=== PATIENT | male | born 1995 | race Caucasian/White ===

== ENCOUNTER → 2017-08-14 06:02 | Emergency (ER) | payer BC, MEDICAID ==
[~2017-08-14 06:02] MED LIST: Clindamycin 600 MG IVPREMIX(* 600 MG/50 ML SDV IV ONE; Dexamethasone IV* 4 MG/ML 1 ML (4 MG) IV SLOW PU ONE; Iohexol 300* (CONTRAST) 10 ML SDV IV ONE
[2017-08-14] MEDS: NS 0.9% 1000 ML* 2,000 ML IV ONE (07:59)
[2017-08-14 08:23] LABS: Hematocrit 46 % (42-52); Hemoglobin 16.2 g/dl (14.0-18.0); Mean Corpuscular HGB Conc 35 g/dl (31-36); Mean Corpuscular Hemoglobin 30 pg (27-31); Mean Corpuscular Volume 85 fL (80-94); Mean Platelet Volume 7 um3 (7.4-10.4); Red Cell Distribution Width 13 % (10.5-15); White Blood Count 16.2 10^3/ul (3.5-10.8)
[2017-08-14 08:54] LABS: Mono Internal Control QC Line Present
[2017-08-14 08:59] LABS: ALT 109 U/L (7-52); Albumin 4.6 g/dL (3.2-5.2); Alkaline Phosphatase 142 U/L (34-104); BUN/Creatinine Ratio 16.4 (8-20); Blood Urea Nitrogen 11 mg/dL (6-24); C Reactive Protein 12.12 mg/L (< 5.00); CO2 Carbon Dioxide 25 mmol/L (22-32); Calcium 9.8 mg/dL (8.6-10.3); Chloride 101 mmol/L (101-111); EGFR African American 189.1 (>60); Globulin 3.2 g/dL (2-4); Glucose 105 mg/dL (70-100); Sodium 134 mmol/L (133-145); Total Protein 7.8 g/dL (6.4-8.9)
--- NOTE | 2017-08-14 09:56 | RAD ---
Indication: Throat pain. Contrast: Administered 50.2 ml of OMNIPAQUE 300 mg/ml CT of the soft tissues of the neck was performed after IV contrast administration. Coronal and sagittal reconstructed images were obtained. The lung apices demonstrate no pleural fluid nodules or masses. Origins of the great vessels are unremarkable. Thyroid lobes are unremarkable. The parotid glands are grossly intact with no evidence of masses or abnormal infiltration. Multiple enlarged lymph nodes are noted. Right sided level 2 lymph nodes are noted measuring up to 2.1 cm. Multiple other lymph nodes are noted. Posterior triangle lymph nodes are noted. Left-sided lymph nodes are noted measuring up to 13 mm. Multiple submandibular lymph nodes are noted. Supraclavicular lymph nodes are noted bilaterally. No evidence of prevertebral soft tissue swelling is noted. No drainable fluid collections are noted. The submandibular glands are otherwise unremarkable. IMPRESSION: There is cervical lymphadenopathy noted with multiple enlarged lymph nodes scattered throughout the neck. The largest are in the right level 2 region measuring up to 2.1 cm. Multiple smaller lymph nodes are scattered throughout the neck including the supraclavicular regions. Correlation with recent infection is suggested. No drainable fluid collections are noted
[2017-08-14 10:06] LABS: Urine Bacteria Absent (Absent); Urine Bilirubin Negative (Negative); Urine Glucose Negative (Negative); Urine Nitrite Negative (Negative)
[2017-08-14 10:29] LABS: Anion Gap 8 mmol/L (2-11)
[2017-08-14 10:38] VITALS: BP 143/85
--- NOTE | 2017-08-14 15:59 | ED ---
Saira Francis Alfonso scribed for Devon Kat MD on 08/14/17 at 0719 . Complex/Multi-Sys Presentation - HPI Summary HPI Summary: This patient is a 22 year old M presenting to [facility] accompanied by male with a chief complaint of a sore throat since 1 week ago. The patient rates the pain 7/ 10 in severity. Symptoms aggravated by lying down. Symptoms alleviated by nothing. 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 Patient reports tiredness, and sinus congestion. Tobacco abuse disorder. PMHx includes seizures. PSHx tonsillectomy. - History Of Current Complaint Chief Complaint: EDThroatPain Time Seen by Provider: 08/14/17 07:09 Hx Obtained From: Patient Onset/Duration: Sudden Onset, Lasting Weeks - 1, Still Present Timing: Constant Severity Initially: Moderate Location: Pain At: - throat Aggravating Factor(s): lying down Alleviating Factor(s): nothing Associated Signs And Symptoms: Positive: Other - tiredness, and sinus congestion - Allergies/Home Medications Allergies/Adverse Reactions: Allergies Allergy/AdvReac Type Severity Reaction Status Date / Time Cefaclor [From [facility]] Allergy Severe See Comment Verified 08/14/17 07:09 PMH/Surg Hx/FS Hx/Imm Hx Opthamlomology History: Denies: Hx Legally Blind EENT History: Denies: Hx Deafness Neurological History: Reports: Hx Seizures - Surgical History Surgery Procedure, Year, and Place: tonsillectomy Infectious Disease History: No Infectious Disease History: Denies: Traveled Outside the [place] in Last 30 Days - Family History Known Family History: Positive: Unknown - patient does not know parents well - Social History Alcohol Use: Weekly Substance Use Type: Reports: None Smoking Status (MU): Light Every Day Tobacco Smoker Review of Systems Positive: Sore Throat, Other - sinus congestion Neurological: Other - tiredness All Other Systems Reviewed And Are Negative: Yes Physical Exam - Summary Physical Exam Summary: VITAL SIGNS: Reviewed. GENERAL: Patient is a well-developed and obese male who is lying comfortable in the stretcher. Patient is not in any acute respiratory distress. HEAD AND FACE: No signs of trauma. No ecchymosis, hematomas or skull depressions. No sinus tenderness. EYES: PERRLA, EOMI x 2, No injected conjunctiva, no nystagmus. EARS: Hearing grossly intact. Ear canals and tympanic membranes are within normal limits. MOUTH: Erythematous pharynx. May be the starts of a Peritonsillar abscess on the left side No trismus. No tongue swelling. Airway patent. No difficulty swallowing. NECK: Supple, trachea is midline, no adenopathy, no JVD, no carotid bruit, no c- spine tenderness, neck with full ROM. CHEST: Symmetric, no tenderness at palpation LUNGS: Clear to auscultation bilaterally. No wheezing or crackles. CVS: Regular rate and rhythm, S1 and S2 present, no murmurs or gallops appreciated. ABDOMEN: Soft, non-tender. No signs of distention. No rebound no guarding, and no masses palpated. Bowel sounds are normal. EXTREMITIES: FROM in all major joints, no edema, no cyanosis or clubbing. NEURO: Alert and oriented x 3. No acute neurological deficits. Speech is normal and follows commands. SKIN: Dry and warm Triage Information Reviewed: Yes Vital Signs On Initial Exam: Initial Vitals Temp Pulse Resp BP Pulse Ox 97.8 F 107 16 135/91 97 08/14/17 06:06 08/14/17 06:06 08/14/17 06:06 08/14/17 06:06 08/14/17 06:06 Vital Signs Reviewed: Yes Diagnostics - Vital Signs Vital Signs Temp Pulse Resp BP Pulse Ox 08/14/17 06:06 97.8 F 107 16 135/91 97 - Laboratory Lab Results: Lab Results 08/14/17 08/14/17 08/14/17 Range/Units 08:08 08:08 08:08 WBC 16.2 H (3.5-10.8) 10^3/ul RBC 5.40 (4.0-5.4) 10^6/ul Hgb 16.2 (14.0-18.0) g/dl Hct 46 (42-52) % MCV 85 (80-94) fL MCH 30 (27-31) pg MCHC 35 (31-36) g/dl RDW 13 (10.5-15) % Plt Count 273 (150-450) 10^3/ul MPV 7 L (7.4-10.4) um3 Neut % (Auto) 62.1 (38-83) % Lymph % (Auto) 29.1 (25-47) % [place] % (Auto) 6.5 (1-9) % Eos % (Auto) 1.8 (0-6) % Baso % (Auto) 0.5 (0-2) % Absolute Neuts (auto) 10.1 H (1.5-7.7) 10^3/ul Absolute Lymphs (auto) 4.7 (1.0-4.8) 10^3/ul Absolute Monos (auto) 1.0 H (0-0.8) 10^3/ul Absolute Eos (auto) 0.3 (0-0.6) 10^3/ul Absolute Basos (auto) 0.1 (0-0.2) 10^3/ul Absolute Nucleated RBC 0.01 10^3/ul Nucleated RBC % 0 Sodium 134 (133-145) mmol/L Potassium TNP Chloride 101 (101-111) mmol/L Carbon Dioxide 25 (22-32) mmol/L Anion Gap 8 (2-11) mmol/L BUN 11 (6-24) mg/dL Creatinine 0.67 (0.67-1.17) mg/dL Est GFR ( Amer) 189.1 (>60) Est GFR (Non-Af Amer) 147.0 (>60) BUN/Creatinine Ratio 16.4 (8-20) Glucose 105 H (70-100) mg/dL Lactic Acid 1.2 (0.5-2.0) mmol/L Calcium 9.8 (8.6-10.3) mg/dL Total Bilirubin 1.10 H (0.2-1.0) mg/dL AST TNP ALT 109 H (7-52) U/L Alkaline Phosphatase 142 H (34-104) U/L C-Reactive Protein 12.12 H (< 5.00) mg/L Total Protein 7.8 (6.4-8.9) g/dL Albumin 4.6 (3.2-5.2) g/dL Globulin 3.2 (2-4) g/dL Albumin/Globulin Ratio 1.4 (1-3) Urine Color Urine Appearance Urine pH (5-9) Ur Specific [place] (1.010-1.030) Urine Protein (Negative) Urine Ketones (Negative) Urine Blood (Negative) Urine Nitrate (Negative) Urine Bilirubin (Negative) Urine Urobilinogen (Negative) Ur Leukocyte Esterase (Negative) Urine WBC (Auto) (Absent) Urine RBC (Auto) (Absent) Ur Squamous Epith Cells (Absent) Urine Bacteria (Absent) Urine Glucose (Negative) Monoscreen Negative (Negative) Group A Strep Rapid (Negative) 08/14/17 08/14/17 Range/Units 08:16 09:47 WBC (3.5-10.8) 10^3/ul RBC (4.0-5.4) 10^6/ul Hgb (14.0-18.0) g/dl Hct (42-52) % MCV (80-94) fL MCH (27-31) pg MCHC (31-36) g/dl RDW (10.5-15) % Plt Count (150-450) 10^3/ul MPV (7.4-10.4) um3 Neut % (Auto) (38-83) % Lymph % (Auto) (25-47) % [place] % (Auto) (1-9) % Eos % (Auto) (0-6) % Baso % (Auto) (0-2) % Absolute Neuts (auto) (1.5-7.7) 10^3/ul Absolute Lymphs (auto) (1.0-4.8) 10^3/ul Absolute Monos (auto) (0-0.8) 10^3/ul Absolute Eos (auto) (0-0.6) 10^3/ul Absolute Basos (auto) (0-0.2) 10^3/ul Absolute Nucleated RBC 10^3/ul Nucleated RBC % Sodium (133-145) mmol/L Potassium Chloride (101-111) mmol/L Carbon Dioxide (22-32) mmol/L Anion Gap (2-11) mmol/L BUN (6-24) mg/dL Creatinine (0.67-1.17) mg/dL Est GFR ( Amer) (>60) Est GFR (Non-Af Amer) (>60) BUN/Creatinine Ratio (8-20) Glucose (70-100) mg/dL Lactic Acid (0.5-2.0) mmol/L Calcium (8.6-10.3) mg/dL Total Bilirubin (0.2-1.0) mg/dL AST ALT (7-52) U/L Alkaline Phosphatase (34-104) U/L C-Reactive Protein (< 5.00) mg/L Total Protein (6.4-8.9) g/dL Albumin (3.2-5.2) g/dL Globulin (2-4) g/dL Albumin/Globulin Ratio (1-3) Urine Color Yellow Urine Appearance Clear Urine pH 5.0 (5-9) Ur Specific [place] 1.012 (1.010-1.030) Urine Protein Negative (Negative) Urine Ketones Negative (Negative) Urine Blood Negative (Negative) Urine Nitrate Negative (Negative) Urine Bilirubin Negative (Negative) Urine Urobilinogen Negative (Negative) Ur Leukocyte Esterase Trace H (Negative) Urine WBC (Auto) 1+(6-10/hpf) H (Absent) Urine RBC (Auto) Trace(0-2/hpf) (Absent) Ur Squamous Epith Cells Present H (Absent) Urine Bacteria Absent (Absent) Urine Glucose Negative (Negative) Monoscreen (Negative) Group A Strep Rapid Negative (Negative) Result Diagrams: 08/14/17 08:08 08/14/17 08:08 Lab Statement: Any lab studies that have been ordered have been reviewed, and results considered in the medical decision making process. - CT neck CT Interpretation Completed By: Radiologist - There is cervical lymphadenopathy noted with multiple enlarged lymph nodes scattered throughout the neck. The largest are in the right level 2 region measuring up to 2.1 cm. Multiple smaller lymph nodes are scattered throughout the neck including the supraclavicular regions. Correlation with recent infection is suggested. No drainable fluid collections are noted. ED physician has reviewed this radiology report and agrees. Re-Evaluation - Re-Evaluation First Eval Re-Evaluation Time: 10:04 Comment: Reviewed imaging and lab results with the patient. Discussed plan for discharge. Complex Multi-Symp Course/Dx Assessment/Plan: This patient is a 22 year old M presenting to [facility] accompanied by male with a chief complaint of a sore throat since 1 week ago. The patient rates the pain 7/10 in severity. Symptoms aggravated by lying down. Symptoms alleviated by nothing. 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 Patient reports tiredness, and sinus congestion. Tobacco abuse disorder. PMHx includes seizures. PSHx tonsillectomy. Test results with no significant abnormalities except for WBC of 16.2 without bands, glucose of 105, and CRP of 12.1. Urinalysis contaminated, therefore, I will send for urine culture. Monoscreen and rapid strep are negative. CT neck reveals There is cervical lymphadenopathy noted with multiple enlarged lymph nodes scattered throughout the neck. The largest are in the right level 2 region measuring up to 2.1 cm. Multiple smaller lymph nodes are scattered throughout the neck including the supraclavicular regions. Correlation with recent infection is suggested. No drainable fluid collections are noted. ED physician has reviewed this radiology report and agrees. This seems like bacterial pharyngitis, therefore the patient will be given clindamycin because the patient is allergic to penicillin and Ceclor. The patient was hydrated, given toradol for the pain, and given a dose of clindamycin. Since patient does not have abscesses, he will be discharged home with PCP follow up. The patient was instructed to return to the ED immediately if he were to develop trismus, difficulty swallowing, feeling his throat closing, or swelling of tongue or lips. Pt understands and agrees. The patient is hemodynamically stable, alert and oriented x3. - Diagnoses Differential Diagnoses/HQI/PQRI: Other - Peritonsilar abscess, Xerostomia, oral candisiasis, URI Provider Diagnoses: Bacterial pharyngitis Discharge - Discharge Plan Condition: Stable Disposition: HOME Prescriptions: Clindamycin Cap(NF) [Clindamycin Cap 300 mg Cap(NF)] 300 mg PO Q6H #40 cap Ibuprofen TAB* [Motrin TAB* 600 MG] 600 mg PO Q8H PRN #30 tab PRN Reason: Pain Patient Education Materials: Pharyngitis (ED) Referrals: Les De Luna MD [Primary Care Provider] - 3 Days Additional Instructions: RETURN TO THE EMERGENCY DEPARTMENT FOR CHANGING OR WORSENING SYMPTOMS. The documentation as recorded by the Saira reyes Alfonso accurately reflects the service I personally performed and the decisions made by , Devon Kat MD.
[2017-08-16 11:54] LABS: EBV Capsid Ag IgG Ab Positive (Negative); EBV Capsid Ag IgM Ab Negative (Negative)
== END | disposition home or self-care (01) ==
LOC: ED 06:02
DX: J02.9 Acute pharyngitis, unspecified (principal); F17.210 Nicotine dependence, cigarettes, uncomplicated
CPT/HCPCS: 36415; 70491; 80053; 81003; 81015; 83605; 85025; 86140; 86308; 86664; 86665; 87070; 87086; 87651; 96374; 99282; J1100; Q9967

== ENCOUNTER 2017-11-15 14:54 | Emergency (ER) | payer BC ==
[2017-11-15 18:51] LABS: Add Diff/Slide Review? Slide Review Added; Comments Flag Yes; Hematocrit 47 % (42-52); Hemoglobin 16.1 g/dl (14.0-18.0); Mean Corpuscular HGB Conc 35 g/dl (31-36); Mean Corpuscular Hemoglobin 30 pg (27-31); Mean Corpuscular Volume 86 fL (80-94); Mean Platelet Volume 7 um3 (7.4-10.4); Red Blood Count 5.44 10^6/ul (4.0-5.4); Red Cell Distribution Width 13 % (10.5-15); White Blood Count 12.2 10^3/ul (3.5-10.8)
[2017-11-15 19:08] LABS: Albumin 4.3 g/dL (3.2-5.2); BUN/Creatinine Ratio 15.1 (8-20); Calcium 9.6 mg/dL (8.6-10.3); EGFR African American 247.8 (>60); EGFR Non-African American 192.7 (>60); Globulin 3.2 g/dL (2-4); Potassium 4.1 mmol/L (3.5-5.0); Total Bilirubin 0.7 mg/dL (0.2-1.0); Total Protein 7.5 g/dL (6.4-8.9)
--- NOTE | 2017-11-15 19:32 | RAD ---
INDICATION: Low back pain, history of kidney stones. COMPARISON: There are no prior studies available for comparison. TECHNIQUE: A CT scan of the abdomen and pelvis was performed without intravenous or oral contrast. Contiguous axial sections were obtained from the lung bases through the symphysis pubis. Images were reconstructed in the coronal and sagittal planes. FINDINGS: The lung bases are clear. No pleural effusion is present. The liver and spleen are mildly enlarged. The liver is decreased in attenuation consistent with fatty infiltration. No significant focal hepatic abnormality is seen on this noncontrast study. No calcified gallstones are noted. The pancreas appears to be within normal limits. The adrenal glands and kidneys are normal in size. There is a punctate 1 mm calculus in the upper pole of the left kidney which is nonobstructing. No ureteral or bladder calculi are seen. The aorta is normal in caliber without significant calcific plaque. No significant enlarged retroperitoneal lymph nodes are seen. The stomach, small and large bowel appear nondistended. The appendix is within normal limits. There is mild descending and sigmoid diverticulosis without evidence for diverticulitis. No free intraperitoneal air or fluid is seen. No significant focal osseous abnormality is seen. IMPRESSION: 1. 1 MM NONOBSTRUCTING LEFT RENAL CALCULUS. 2. MILD HEPATOSPLENOMEGALY AND HEPATIC STEATOSIS.
[2017-11-15] MEDS ORDERED: Cyclobenzaprine TAB* 10 MG PO ONE (19:38)
[2017-11-15] MEDS ORDERED: Ibuprofen TAB* 800 MG PO ONE (19:38)
[2017-11-15 19:55] LABS: Urine Bilirubin Negative (Negative); Urine Glucose Negative (Negative); Urine Nitrite Negative (Negative)
--- NOTE | 2017-11-15 20:20 | ED ---
Back Pain - HPI Summary HPI Summary: 22M presents with back pain for 3 days. pain is sharp and is located in his lower back. does not radiate anywhere. no pain down the legs. He denies any injury. He denies any loss of bowel or bladder or saddle anaesthesia. He denies any fever. He denies any nausea, vomiting, or diarrhea. no abdominal pain. no dysuria, hematuria, urgency, or frequency. He has never had this pain before. He has been taking ibuprofen without relief. He states he lifts heavy things at work. He has history of kidney stones. - History of Current Complaint Chief Complaint: EDFlankPain Stated Complaint: LOWER BACK PAIN Time Seen by Provider: 11/15/17 18:28 Pain Intensity: 8 - Allergies/Home Medications Allergies/Adverse Reactions: Allergies Allergy/AdvReac Type Severity Reaction Status Date / Time [facility] Allergy Severe See Comment Verified 11/15/17 15:18 PMH/Surg Hx/FS Hx/Imm Hx Endocrine/Hematology History: Denies: Hx Diabetes Cardiovascular History: Denies: Hx Hypertension History: Denies: Hx Renal Disease Sensory History: Denies: Hx Legally Blind, Hx Deafness Opthamlomology History: Denies: Hx Legally Blind Neurological History: Reports: Hx Seizures - Surgical History Surgery Procedure, Year, and Place: tonsillectomy - Immunization History Immunizations Up to Date: Yes Infectious Disease History: No Infectious Disease History: Denies: Traveled Outside the [place] in Last 30 Days - Family History Known Family History: Positive: Unknown - patient does not know parents well - Social History Alcohol Use: Occasionally Substance Use Type: Reports: None Smoking Status (MU): Light Every Day Tobacco Smoker Review of Systems Negative: Fever Negative: Chest Pain Negative: Shortness Of Breath Positive: Myalgia - back pain All Other Systems Reviewed And Are Negative: Yes Physical Exam Triage Information Reviewed: Yes Vital Signs On Initial Exam: Initial Vitals Temp Pulse Resp BP Pulse Ox 99.7 F 86 20 155/81 98 11/15/17 15:16 11/15/17 15:16 11/15/17 15:16 11/15/17 15:16 11/15/17 15:16 Vital Signs Reviewed: Yes Appearance: Positive: Well-Appearing Skin: Positive: Warm, Dry Head/Face: Positive: Normal Head/Face Inspection Eyes: Positive: Normal, EOMI, YANIRA, Conjunctiva Clear ENT: Positive: Normal ENT inspection, Pharynx normal, TMs normal Respiratory/Lung Sounds: Positive: Clear to Auscultation, Breath Sounds Present Cardiovascular: Positive: Normal, RRR Abdomen Description: Positive: Nontender, Soft. Negative: CVA Tenderness (R), CVA Tenderness (L) Musculoskeletal: Positive: Strength/ROM Intact - back, Other - tenderness lower back, neg SLR, sensation grossly intact, good pulses Neurological: Positive: Sensory/Motor Intact, Reflexes Intact - achilles Psychiatric: Positive: Normal - Juan Coma Scale Coma Scale Total: 15 Diagnostics - Vital Signs Vital Signs Temp Pulse Resp BP Pulse Ox 11/15/17 19:39 74 16 148/86 98 11/15/17 15:16 99.7 F 86 20 155/81 98 - Laboratory Lab Results: Lab Results 11/15/17 11/15/17 11/15/17 Range/Units 18:43 18:43 19:35 WBC 12.2 H (3.5-10.8) 10^3/ul RBC 5.44 H (4.0-5.4) 10^6/ul Hgb 16.1 (14.0-18.0) g/dl Hct 47 (42-52) % MCV 86 (80-94) fL MCH 30 (27-31) pg MCHC 35 (31-36) g/dl RDW 13 (10.5-15) % Plt Count 272 (150-450) 10^3/ul MPV 7 L (7.4-10.4) um3 Neut % (Auto) 56.3 (38-83) % Lymph % (Auto) 37.0 (25-47) % [place] % (Auto) 4.5 (1-9) % Eos % (Auto) 1.4 (0-6) % Baso % (Auto) 0.8 (0-2) % Absolute Neuts (auto) 6.9 (1.5-7.7) 10^3/ul Absolute Lymphs (auto) 4.5 (1.0-4.8) 10^3/ul Absolute Monos (auto) 0.6 (0-0.8) 10^3/ul Absolute Eos (auto) 0.2 (0-0.6) 10^3/ul Absolute Basos (auto) 0.1 (0-0.2) 10^3/ul Absolute Nucleated RBC 0.11 10^3/ul Nucleated RBC % 0.9 Sodium 135 (133-145) mmol/L Potassium 4.1 (3.5-5.0) mmol/L Chloride 103 (101-111) mmol/L Carbon Dioxide 24 (22-32) mmol/L Anion Gap 8 (2-11) mmol/L BUN 8 (6-24) mg/dL Creatinine 0.53 L (0.67-1.17) mg/dL Est GFR ( Amer) 247.8 (>60) Est GFR (Non-Af Amer) 192.7 (>60) BUN/Creatinine Ratio 15.1 (8-20) Glucose 86 (70-100) mg/dL Calcium 9.6 (8.6-10.3) mg/dL Total Bilirubin 0.70 (0.2-1.0) mg/dL AST 26 (13-39) U/L ALT 44 (7-52) U/L Alkaline Phosphatase 103 (34-104) U/L C-React Prot High Sens 3.04 mg/L Total Protein 7.5 (6.4-8.9) g/dL Albumin 4.3 (3.2-5.2) g/dL Globulin 3.2 (2-4) g/dL Albumin/Globulin Ratio 1.3 (1-3) Lipase 54 (11.0-82.0) U/L Urine Color Yellow Urine Appearance Clear Urine pH 7.0 (5-9) Ur Specific [place] 1.015 (1.010-1.030) Urine Protein Negative (Negative) Urine Ketones Negative (Negative) Urine Blood Negative (Negative) Urine Nitrate Negative (Negative) Urine Bilirubin Negative (Negative) Urine Urobilinogen Negative (Negative) Ur Leukocyte Esterase Negative (Negative) Urine Glucose Negative (Negative) Result Diagrams: 11/15/17 18:43 11/15/17 18:43 Lab Statement: Any lab studies that have been ordered have been reviewed, and results considered in the medical decision making process. - CT abd CT Interpretation: No Acute Changes - IMPRESSION: 1. 1 MM NONOBSTRUCTING LEFT RENAL CALCULUS. 2. MILD HEPATOSPLENOMEGALY AND HEPATIC STEATOSIS. CT Interpretation Completed By: Radiologist Back Pain Course/Dx - Course Course Of Treatment: 22M presents with back pain for 3 days. pain is sharp and is located in his lower back. does not radiate anywhere. no pain down the legs. He denies any injury. He denies any loss of bowel or bladder or saddle anaesthesia. He denies any fever. He denies any nausea, vomiting, or diarrhea. no abdominal pain. no dysuria, hematuria, urgency, or frequency. He has never had this pain before. He has been taking ibuprofen without relief. He states he lifts heavy things at work. He has history of kidney stones. on exam tenderness lower back. neg SLR, neurovascular intact. CT shows renal stone. will treat with muscle relaxer and gave referral to primary. patient understand and agrees with plan. - Diagnoses Differential Diagnosis/HQI/PQRI: Positive: Herniated Disc, Strain, Sprain, Other - renal stone Provider Diagnoses: Back pain, Renal stone Discharge - Discharge Plan Condition: Good Disposition: HOME Prescriptions: Cyclobenzaprine TAB* [Flexeril 10 MG TAB*] 10 mg PO TID PRN #21 tab PRN Reason: Pain Patient Education Materials: Back Pain (ED) Forms: *Work Release Referrals: [facility] PH[facility]ICIAN REFERRAL [Outside] Additional Instructions: Take muscle relaxers three times a day Use ibuprofen or Tylenol for pain every 6 hours ice/heat area, move as much as possible Follow up with primary within 5 days Return to ED if develop any new or worsening symptoms
[2017-11-15 21:25] VITALS: BP 152/80
== END 2017-11-15 21:00 | disposition home or self-care (01) ==
LOC: ED 14:54
DX: N20.0 Calculus of kidney (principal); R16.2 Hepatomegaly with splenomegaly, not elsewhere classified; F17.200 Nicotine dependence, unspecified, uncomplicated
CPT/HCPCS: 36415; 74176; 80053; 81003; 83690; 85025; 86141; 99283; A9270-GY

== ENCOUNTER 2018-02-23 05:40 | Emergency (ER) | payer BC, OTHER ==
[2018-02-23] MEDS ORDERED: Ketorolac INJ* 30 MG/ML 1 ML VIAL IV PUSH ONE (05:54)
[2018-02-23] MEDS ORDERED: Morphine INJ* 4 MG/ML 1 ML SYRINGE (NEW SYRINGE VERSION) IV ONE (05:55)
[2018-02-23] MEDS ORDERED: NS 0.9% 1000 ML* 1,000 ML IV ONE (05:56)
[2018-02-23] MEDS ORDERED: Metoclopramide IV* 5 MG/ML 2 ML VIAL IV SLOW PU ONE (05:57)
[2018-02-23] MEDS ORDERED: oxyCODONE/Acetamin 5/325 MG* TAB PO ONE (06:27)
[2018-02-23] MEDS ORDERED: Ibuprofen TAB* 600 MG PO ONE (06:27)
[2018-02-23] MEDS ORDERED: Ondansetron ODT TAB* 4 MG PO ONE (06:28)
[2018-02-23 06:40] LABS: Urine Appearance Cloudy; Urine Blood 3+ (Negative); Urine Color Yellow; Urine Ketones Negative (Negative); Urine Protein 1+(30 mg/dL) (Negative); Urine Specific Gravity 1.014 (1.010-1.030); Urine Urobilinogen Negative (Negative)
[2018-02-23] MEDS ORDERED: Tamsulosin CAP* 0.4 MG PO ONE (06:48)
[2018-02-23 07:30] VITALS: BP 128/68
--- NOTE | 2018-02-23 07:32 | ED ---
Rick Francis Nilda, scribed for Vicenta Fermin MD on 02/23/18 at 0602 . GI/ HPI - HPI Summary HPI Summary: This patient is a 22 year old M presenting to [facility] accompanied by father with a chief complaint of waking up with constant severe left flank pain at 0330. The patient rates the pain 8/10 in severity. Symptoms aggravated and alleviated by nothing. Patient reports nausea and difficulty with urination. Patient denies fever. Father states imaging for muscle spasms incidentally revealed kidney stone. PMHx includes Kidney Stone 06/2018. - History of Current Complaint Chief Complaint: EDFlankPain Time Seen by Provider: 02/23/18 05:48 Stated Complaint: FLANK PAIN Hx Obtained From: Patient Onset/Duration: Started Hours Ago, Still Present Timing: Constant Severity: Severe Current Severity: Severe Pain Intensity: 8 Location of Pain: Flank - left Associated Signs and Symptoms: Positive: Other: - nausea, difficulty urinating; negative fever Aggravating Factor(s): Nothing Alleviating Factor(s): Nothing - Allergy/Home Medications Allergies/Adverse Reactions: Allergies Allergy/AdvReac Type Severity Reaction Status Date / Time cefaclor [From [facility]] Allergy Unknown Verified 02/23/18 05:48 Reaction Details PMH/Surg Hx/FS Hx/Imm Hx Endocrine/Hematology History: Denies: Hx Diabetes Cardiovascular History: Denies: Hx Hypertension History: Denies: Hx Renal Disease Sensory History: Denies: Hx Legally Blind, Hx Deafness Opthamlomology History: Denies: Hx Legally Blind Neurological History: Reports: Hx Seizures - Surgical History Surgery Procedure, Year, and Place: tonsillectomy Infectious Disease History: No Infectious Disease History: Denies: Traveled Outside the [place] in Last 30 Days - Social History Alcohol Use: Occasionally Substance Use Type: Reports: None Smoking Status (MU): Light Every Day Tobacco Smoker Review of Systems Negative: Fever Positive: Nausea Positive: flank pain - left, other - difficulty with urination All Other Systems Reviewed And Are Negative: Yes Physical Exam - Summary Physical Exam Summary: VITAL SIGNS: Reviewed. GENERAL: Patient is a well-developed and nourished male who is lying comfortable in the stretcher. Patient is not in any acute respiratory distress. HEAD AND FACE: No signs of trauma. No ecchymosis, hematomas or skull depressions. No sinus tenderness. EYES: PERRLA, EOMI x 2, No injected conjunctiva, no nystagmus. EARS: Hearing grossly intact. Ear canals and tympanic membranes are within normal limits. MOUTH: Oropharynx within normal limits. NECK: Supple, trachea is midline, no adenopathy, no JVD, no carotid bruit, no c- spine tenderness, neck with full ROM. CHEST: Symmetric, no tenderness at palpation LUNGS: Clear to auscultation bilaterally. No wheezing or crackles. CVS: Regular rate and rhythm, S1 and S2 present, no murmurs or gallops appreciated. ABDOMEN: Soft, LUQ tenderness. No signs of distention. No rebound no guarding, and no masses palpated. Bowel sounds are normal. BACK: left CVA tenderness EXTREMITIES: FROM in all major joints, no edema, no cyanosis or clubbing. NEURO: Alert and oriented x 3. No acute neurological deficits. Speech is normal and follows commands. SKIN: Dry and warm Triage Information Reviewed: Yes Vital Signs On Initial Exam: Initial Vitals Temp Pulse Resp BP Pulse Ox 97.1 F 85 18 144/93 97 02/23/18 05:41 02/23/18 05:41 02/23/18 05:41 02/23/18 05:41 02/23/18 05:41 Vital Signs Reviewed: Yes Diagnostics - Vital Signs Vital Signs Temp Pulse Resp BP Pulse Ox 02/23/18 05:41 97.1 F 85 18 144/93 97 - Laboratory Lab Statement: Any lab studies that have been ordered have been reviewed, and results considered in the medical decision making process. - CT Abd/Pel CT Interpretation Completed By: Radiologist - CT scan reveals 5 mm stone mid left ureter causing minimal hydronephrosis. Small stone right kidney. Dr. Fermin has reviewed this report. Re-Evaluation - Re-Evaluation First Eval Re-Evaluation Time: 07:06 Comment: Reviewed imaging and labs with pt. Pt agreeable to D/C. GIGU Course/Dx - Course Course Of Treatment: Pt declined IV because of fear of needles. Assessment/Plan: 22 y/o with left sided flank pain with nausea since 0300. Exam revealed left CVA tenderness and left flank tenderness. CT showed 5 mm stone in left ureter with hydronephrosis. Labs show microscopic hematuria. No fever. Pt feels better after medications. He declined IV and blood work. Pt will be D/C home with medications with f/u with neurologist. - Diagnoses Provider Diagnoses: Left ureteral stone, Renal colic Discharge - Sign-Out/Discharge Documenting (check all that apply): Discharge - home - Discharge Plan Condition: Stable Disposition: HOME Prescriptions: Ondansetron [Zofran Odt] 8 mg PO Q6HR PRN #20 tab.rapdis PRN Reason: Nausea/Vomiting oxyCODONE/Acetamin 5/325 MG* [Percocet 5/325 TAB*] 1 tab PO Q6H PRN #14 tab MDD 4 PRN Reason: Pain Tamsulosin CAP* [Flomax CAP*] 0.4 mg PO BEDTIME #7 cap Patient Education Materials: Renal Colic (ED), Ureteral Stones (ED) Forms: *Work Release Referrals: No Primary Care Phys,NOPCP [Primary Care Provider] - Miko Mary MD [Medical Doctor] - 2 Days Additional Instructions: Strain all urine. RETURN TO THE EMERGENCY DEPARTMENT FOR CHANGING OR WORSENING SYMPTOMS. The documentation as recorded by the Rick reyes Nilda accurately reflects the service I personally performed and the decisions made by , Vicenta Fermin MD.
--- NOTE | 2018-02-23 07:56 | RAD ---
INDICATION: Abdominal pain. COMPARISON: Comparison is made with a prior CT of the abdomen and pelvis from November 15, 2017. TECHNIQUE: A CT scan of the abdomen and pelvis was performed without intravenous or oral contrast. Contiguous axial sections were obtained from the lung bases through the symphysis pubis. Images were reconstructed in the coronal and sagittal planes. FINDINGS: The lung bases are clear. No pleural effusion is present. The liver and spleen is mildly enlarged. The liver is decreased in attenuation consistent with fatty infiltration. No calcified gallstones are seen. The pancreas appears to be within normal limits. The adrenal glands and kidneys appear normal in size. There is a 2 mm calculus in the lower pole of the right kidney which appears new from the prior study. There is mild left perinephric stranding. There is mild dilatation of the left renal calyces and pelvis to the level of a 2 x 4 mm calculus in the proximal left ureter just beyond the ureteropelvic junction causing mild hydronephrosis. No bladder calculi are seen. The urinary bladder wall is diffusely thickened although the bladder is nondistended. The aorta is normal in caliber without significant calcific plaque. There are mildly prominent external iliac chain lymph nodes measuring up to 1.1 cm in transverse dimension. No other enlarged retroperitoneal lymph nodes are seen. The stomach, small and large bowel appear nondistended. The appendix is within normal limits. There is no evidence for diverticulitis or colitis. There are a few scattered diverticula within the colon. There is a small. Local hernia containing fat. No free intraperitoneal air or fluid is seen. No significant focal osseous abnormality is seen. IMPRESSION: 1. THERE IS A 4 MM CALCULUS IN THE PROXIMAL LEFT URETER CAUSING MILD HYDRONEPHROSIS. 2. THERE IS A SMALL NONOBSTRUCTING RIGHT RENAL CALCULUS, NEW. 3. MILD HEPATIC MEGALY AND HEPATIC STEATOSIS.
== END 2018-02-23 07:28 | disposition home or self-care (01) ==
LOC: ED 05:40
DX: N20.1 Calculus of ureter (principal); N23 Unspecified renal colic; R11.0 Nausea; R10.84 Generalized abdominal pain; F17.210 Nicotine dependence, cigarettes, uncomplicated; Z87.442 Personal history of urinary calculi
CPT/HCPCS: 74176; 81003; 81015; 87086; 96374; 96375; 99283; A9270-GY; J2270

== ENCOUNTER 2018-03-02 16:23 | Emergency (ER) | payer OTHER ==
[2018-03-02] MEDS ORDERED: Ketorolac INJ* 30 MG/ML 1 ML VIAL IM ONE (16:48)
[2018-03-02] MEDS ORDERED: NS 0.9% 1000 ML* 1,000 ML IV ONE (16:48)
[2018-03-02] MEDS ORDERED: oxyCODONE/Acetamin 5/325 MG* TAB PO ONE ×2 (16:57→19:23)
[2018-03-02] MEDS ORDERED: Ibuprofen TAB* 800 MG PO ONE (16:57)
[2018-03-02 17:47] LABS: Urine Appearance Clear; Urine Blood 2+ (Negative); Urine Color Yellow; Urine Ketones Negative (Negative); Urine Protein Negative (Negative); Urine Specific Gravity 1.021 (1.010-1.030); Urine Urobilinogen Negative (Negative)
--- NOTE | 2018-03-02 18:06 | RAD ---
INDICATION: Lower abdominal pain. Constipation. COMPARISON: February 23, 2018 CT. TECHNIQUE: Multidetector CT images were obtained from the lung bases to the ischial tuberosities. Evaluation of the viscera is limited without IV contrast. Multiplanar reformation. REPORT: Unremarkable visualized inferior thorax. 21 cm cephalocaudal liver is decreased in density consistent with fatty infiltration. No focal hepatic lesions or biliary dilatation evident. No CT abnormality of the gallbladder or pancreas evident. Mildly enlarged 15 cm cephalocaudal spleen. Negative for CT abnormality of the upper GI, small bowel, or infra cecal appendix. Unremarkable colon. Negative for ascites, free air, hernias. Normal adrenal glands. Mild RIGHT perinephric and periureteral inflammatory stranding and moderate hydronephrosis is traced to a 4 mm maximum dimension stone at the ureterovesicular junction. Despite absence of hydronephrosis there is a 4 mm maximum dimension stone within the proximal LEFT ureter. Largely decompressed urinary bladder limiting assessment without additional stones. Symmetric seminal vesicles. 0.7 cm short axis RIGHT external iliac lymph node. Negative for lymphadenopathy. Normal diameter abdominal aorta and iliac arteries. Physiologic distention of the IVC. Small bone island at the intratrochanteric region of the LEFT femur. Negative for suspicious focal osseous lesions. IMPRESSION: 1. Mild RIGHT perinephric and periureteral inflammatory stranding and moderate hydronephrosis is traced to a 4 mm maximum dimension stone at the ureterovesicular junction. 2. Mild distal propagation of the 4 mm proximal LEFT ureteral stone. Resolution of previous LEFT hydronephrosis. 3. Hepatomegaly with hepatosteatosis. 4. Mild splenomegaly without change.
[2018-03-02] MEDS ORDERED: Tamsulosin CAP* 0.4 MG PO ONE (19:23)
[2018-03-02 19:48] VITALS: BP 141/81
--- NOTE | 2018-03-03 16:29 | ED ---
Vidhya Francis Thomas, scribed for Devon Kat MD on 03/02/18 at 1659 . Abdominal Pain/Male - HPI Summary HPI Summary: The patient is a 22 year old male who was evaluated at [facility] on 02/23/18 for a left-sided kidney stone visualized on CT Abd/Pel. The patient presents today because he has right-sided flank pain. He complains of nausea but denies vomiting. He refuses IV access and blood draw. - History of Current Complaint Chief Complaint: EDFlankPain Stated Complaint: LOWER BACK/FLANK PAIN Time Seen by Provider: 03/02/18 16:47 Hx Obtained From: Patient Onset/Duration: Still Present Timing: Constant Severity Currently: Severe Pain Intensity: 8 Pain Scale Used: 0-10 Numeric Location: Flank - right Aggravating Factor(s): Nothing Alleviating Factor(s): Nothing Associated Signs And Symptoms: Positive: Nausea. Negative: Fever, Vomiting - Allergies/Home Medications Allergies/Adverse Reactions: Allergies Allergy/AdvReac Type Severity Reaction Status Date / Time cefaclor [From Ceclor] Allergy Unknown Verified 03/02/18 17:29 Reaction Details Home Medications: Home Medications Naproxen Sodium [Aleve] 220 - 440 mg PO BID PRN 03/02/18 [History Confirmed 11/07] PMH/Surg Hx/FS Hx/Imm Hx Endocrine/Hematology History: Denies: Hx Diabetes Cardiovascular History: Denies: Hx Hypertension History: Reports: Hx Kidney Stones Denies: Hx Renal Disease Sensory History: Denies: Hx Legally Blind, Hx Deafness Opthamlomology History: Denies: Hx Legally Blind Neurological History: Reports: Hx Seizures - Surgical History Surgery Procedure, Year, and Place: tonsillectomy Infectious Disease History: No Infectious Disease History: Denies: Traveled Outside the [place] in Last 30 Days - Family History Known Family History: Positive: Unknown - patient does not know parents well - Social History Alcohol Use: Occasionally Substance Use Type: Reports: None Smoking Status (MU): Light Every Day Tobacco Smoker Review of Systems Negative: Fever Positive: Nausea. Negative: Vomiting Positive: flank pain - left All Other Systems Reviewed And Are Negative: Yes Physical Exam - Summary Physical Exam Summary: VITAL SIGNS: Reviewed. GENERAL: Patient is an obese male who is lying comfortable in the stretcher. Patient is not in any acute respiratory distress. He is not in acute distress. HEAD AND FACE: Normocephalic and atraumatic. EYES: PERRLA, EOMI x 2, No injected conjunctiva. EARS: Hearing grossly intact. Ear canals and tympanic membranes are WNL. MOUTH: Oropharynx within normal limits. NECK: Supple, trachea is midline, no adenopathy, no JVD. CHEST: Symmetric, no tenderness at palpation LUNGS: Clear to auscultation bilaterally. No wheezing or crackles. CVS: RRR, S1 and S2 present, no murmurs or gallops appreciated. ABDOMEN: Soft, non-tender. No signs of distention. Positive bowel sounds. No rebound no guarding, and no masses palpated. No abdominal bruit or pulsations. BACK: He has positive right CVA tenderness. EXTREMITIES: FROM in all major joints, no edema, no cyanosis or clubbing. NEURO: Alert and oriented x 3. No acute neurological deficits. Speech is normal. SKIN: Dry and warm Triage Information Reviewed: Yes Vital Signs On Initial Exam: Initial Vitals Temp Pulse Resp BP Pulse Ox 97.4 F 83 20 163/81 99 03/02/18 16:32 03/02/18 16:32 03/02/18 16:32 03/02/18 16:32 03/02/18 16:32 Vital Signs Reviewed: Yes Diagnostics - Vital Signs Vital Signs Temp Pulse Resp BP Pulse Ox 03/02/18 16:32 97.4 F 83 20 163/81 99 - Laboratory Lab Statement: Any lab studies that have been ordered have been reviewed, and results considered in the medical decision making process. - CT CT Abdomen/Pelvis CT Interpretation: No Acute Changes, Positive (See Comments) - IMPRESSION: 1. Mild RIGHT perinephric and periureteral inflammatory stranding and moderate hydronephrosis is traced to a 4 mm maximum dimension stone at the ureterovesicular junction. 2. Mild distal propagation of the 4 mm proximal LEFT ureteral stone. Resolution of previous LEFT hydronephrosis. 3. Hepatomegaly with hepatosteatosis. 4. Mild splenomegaly without change. Dr. Kat has reviewed this report. CT Interpretation Completed By: Radiologist Re-Evaluation - Re-Evaluation First Eval Re-Evaluation Time: 19:10 Comment: Results discussed. Patient will be discharged. Abdominal Pain Fem Course/Dx - Course Assessment/Plan: The patient is a 22 year old male who was evaluated at [facility] on 02/23/18 for a left-sided kidney stone visualized on CT Abd/Pel. The patient presents today because he has right-sided flank pain. He complains of nausea but denies vomiting. He refuses IV access and blood draw. He only wants pain medication and a CT scan. The urinalysis was contaminated; therefore, we will send for cultures. The patient was given ibuprofen and Percocet for the pain. His pain has improved. In the ED course the patient was given Flomax. CT Abdomen /Pelvis shows 1. Mild RIGHT perinephric and periureteral inflammatory stranding and moderate hydronephrosis is traced to a 4 mm maximum dimension stone at the ureterovesicular junction. 2. Mild distal propagation of the 4 mm proximal LEFT ureteral stone. Resolution of previous LEFT hydronephrosis. 3. Hepatomegaly with hepatosteatosis. 4. Mild splenomegaly without change. Since the patient is feeling better, he will be discharged home to follow up with urology. He is hemodynamically stable and alert and oriented x 3. - Diagnoses Provider Diagnoses: Kidney stones Discharge - Sign-Out/Discharge Documenting (check all that apply): Discharge - Discharge Plan Condition: Stable Disposition: HOME Prescriptions: Hydrocodone/Acetaminophen [Shevlin 5-325 mg] 1 tab PO Q6H PRN #12 tab MDD 4 PRN Reason: Pain Ondansetron TAB* [Zofran 4 MG Tab*] 4 mg PO Q6H PRN #10 tab PRN Reason: Nausea Tamsulosin CAP* [Flomax CAP*] 0.4 mg PO DAILY #10 cap Patient Education Materials: Kidney Stones (ED) Forms: *Work Release Referrals: Luis Knight MD [Medical Doctor] - 3 Days Miko Mary MD [Medical Doctor] - 3 Days Additional Instructions: Follow up with urology in three days. I have given you referrals to Dr. Mary and Dr. Knight. Return to the emergency department for any new or worsening symptoms. The documentation as recorded by the Vidhya reyes Thomas accurately reflects the service I personally performed and the decisions made by , Devon Kat MD.
== END 2018-03-02 19:48 | disposition home or self-care (01) ==
LOC: ED 16:23
DX: N13.2 Hydronephrosis with renal and ureteral calculous obstruction (principal); Z87.442 Personal history of urinary calculi; R16.2 Hepatomegaly with splenomegaly, not elsewhere classified; R11.0 Nausea; R56.9 Unspecified convulsions; Z88.1 Allergy status to other antibiotic agents; F17.210 Nicotine dependence, cigarettes, uncomplicated
CPT/HCPCS: 74176; 81003; 81015; 87086; 99282; A9270-GY

== ENCOUNTER 2019-02-10 17:16 | Emergency (ER) | payer OTHER ==
[2019-02-10 17:25] VITALS: BP 147/91
--- NOTE | 2019-02-10 17:43 | UC ---
Complaint Male HPI - HPI Summary HPI Summary: diagnosed with chlamydia. Would like STD treatment. - History of Current Complaint Chief Complaint: UCSTDScreening Stated Complaint: PERSONAL Hx Obtained From: Patient Onset/Duration: Other - No symptoms. Severity Currently: None Pain Intensity: 0 Location: None Aggravating Factor(s): Nothing Alleviating Factor(s): Nothing Associated Signs And Symptoms: Positive: Negative - Allergies/Home Medications Allergies/Adverse Reactions: Allergies Allergy/AdvReac Type Severity Reaction Status Date / Time cefaclor [From Ceclor] Allergy Unknown Verified 02/10/19 17:25 Reaction Details Home Medications: Home Medications Ibuprofen TAB* [Motrin TAB* 800 MG] 800 mg PO Q8H PRN 02/10/19 [History Confirmed 02/10/19] PMH/Surg Hx/FS Hx/Imm Hx Neurological History: Seizures - Surgical History Surgical History: Yes Surgery Procedure, Year, and Place: tonsillectomy, wisdom teeth - Family History Known Family History: Positive: Unknown - patient does not know parents well - Social History Occupation: Employed Full-time Lives: With Family Alcohol Use: Weekly Substance Use Type: None Smoking Status (MU): Light Every Day Tobacco Smoker Household Exposure Type: Cigarettes Review of Systems All Other Systems Reviewed And Are Negative: Yes ENT: Positive: Nasal Discharge Respiratory: Positive: Other - snoring Is Patient Immunocompromised?: No Physical Exam Triage Information Reviewed: Yes Appearance: Well-Appearing, No Pain Distress, Obese Vital Signs: Initial Vital Signs Temp 98.1 F 02/10/19 17:21 Pulse 79 02/10/19 17:21 Resp 16 02/10/19 17:21 BP 147/91 02/10/19 17:21 Pulse Ox 99 02/10/19 17:21 Vital Signs Reviewed: Yes Eyes: Positive: Conjunctiva Clear ENT: Positive: Pharynx normal, Nasal congestion, TMs normal Neck exam: Normal Respiratory Exam: Normal Cardiovascular Exam: Normal Male Genital Exam: Positive: Normal Genitalia Musculoskeletal Exam: Normal Neurological Exam: Normal Psychological Exam: Normal Skin Exam: Normal Complaint Male Course/Dx - Differential Dx/Diagnosis Differential Diagnosis/HQI/PQRI: Epididymitis, Prostatitis, Urinary Tract Infection Provider Diagnosis: Exposure to potentially hazardous body fluids Discharge - Sign-Out/Discharge Documenting (check all that apply): Patient Departure All imaging exams completed and their final reports reviewed: No Studies - Discharge Plan Condition: Stable Disposition: HOME Prescriptions: Azithromycin 1,000 mg PO ONCE #1 tablet Patient Education Materials: Chlamydia (ED), Azithromycin (By mouth) Referrals: No Primary Care Phys,NOPCP [Primary Care Provider] - Additional Instructions: NEILMED SINUS RINSE: CHECK OUT AT [facility] Saline nasal wash helps with mucous, allergies and congestion. It can be used up to twice a day or only as needed. Use lukewarm tap water. It does not have to be sterilized or distilled water. Do 1/3 on each side and snort out of both nostrils. Repeat the process with 1/6 of the bottle on each side with snorting in between to finish the solution in the bottle - Billing Disposition and Condition Condition: STABLE Disposition: Home
== END 2019-02-10 18:27 | disposition home or self-care (01) ==
LOC: UCEAST 17:16
DX: Z77.21 Contact with and (suspected) exposure to potentially hazardous body fluids (principal); R09.81 Nasal congestion; R09.89 Other specified symptoms and signs involving the circulatory and respiratory systems; F17.210 Nicotine dependence, cigarettes, uncomplicated; Z88.1 Allergy status to other antibiotic agents
CPT/HCPCS: 36415; 86592; 86695; 86696; 87389; 99212; G0463; G0475

== ENCOUNTER 2019-03-20 17:02 | Emergency (ER) | payer OTHER ==
[2019-03-20 17:53] VITALS: BP 123/74
--- NOTE | 2019-03-20 18:03 | UC ---
General HPI - HPI Summary HPI Summary: pt states he had a head cold about 2 weeks ago but got all better. then for about the past 4-5 days, he has been having some pain in his L lower ribs on the front. he denies any hx of injury. it occurs with deep breath and any types of movement. he has no fever. sob occurs with the pain only. he has no leg or calf pain and no swelling and no hx dvt. he tried a friends inhaler with some questionable relief. he denies abdominal pain. there is no exertional component. - History of Current Complaint Chief Complaint: UCRespiratory Stated Complaint: LEFT SIDE RIB PAIN Time Seen by Provider: 03/20/19 17:56 Hx Obtained From: Patient Pain Intensity: 6 - Allergy/Home Medications Allergies/Adverse Reactions: Allergies Allergy/AdvReac Type Severity Reaction Status Date / Time cefaclor [From [facility]] Allergy Unknown Verified 03/20/19 17:53 Reaction Details Home Medications: Home Medications Albuterol HFA INHALER* [Ventolin HFA Inhaler*] 2 puff INH Q24H PRN 03/20/19 [ History Confirmed 03/20/19] PMH/Surg Hx/FS Hx/Imm Hx Previously Healthy: Yes - Surgical History Surgical History: Yes Surgery Procedure, Year, and Place: tonsillectomy, wisdom teeth - Family History Known Family History: Positive: Unknown - patient does not know parents well - Social History Occupation: Employed Full-time Alcohol Use: Weekly Alcohol Amount: 2 Substance Use Type: Excessive Caffeine Smoking Status (MU): Heavy Every Day Tobacco Smoker Household Exposure Type: Cigarettes Review of Systems All Other Systems Reviewed And Are Negative: Yes Cardiovascular: Negative: Palpitations, Chest Pain Gastrointestinal: Negative: Abdominal Pain, Vomiting, Diarrhea, Nausea Physical Exam Triage Information Reviewed: Yes Appearance: Well-Appearing Vital Signs: Initial Vital Signs Temp 98.2 F 03/20/19 17:41 Pulse 67 03/20/19 17:41 Resp 18 03/20/19 17:41 BP 123/74 03/20/19 17:41 Pulse Ox 98 03/20/19 17:41 Vital Signs Reviewed: Yes Eyes: Positive: Conjunctiva Clear ENT: Positive: Pharynx normal, TMs normal. Negative: Nasal congestion, Nasal drainage Neck: Positive: Supple, Nontender, No Lymphadenopathy Respiratory: Positive: Normal breath sounds, No respiratory distress, Other: - Chest: no deformity, swelling or rash. Tender over the L lower costochondral junction. No crepitation or instability. Cardiovascular: Positive: RRR, No Murmur, Other: - Pt leaned forward for 2 point auscultation with no change in pain and no rubs or murmurs. Abdomen Description: Positive: Nontender, No Organomegaly, Soft. Negative: Distended, Guarding, Pulsatile Mass Bowel Sounds: Positive: Present Musculoskeletal: Positive: ROM Intact, No Edema, Other: - No calf tenderness or cords. Negative Homans. Neurological: Positive: Alert Psychological: Positive: Age Appropriate Behavior Skin Exam: Normal Skin: Negative: Rashes Diagnostics - Radiology No standard instances Radiology Interpretation Completed By: ED Physician - cxr=nad Course/Dx - Differential Dx - Multi-Symptom Differential Diagnoses: Other - no cm, inflitrate, pxt or bony pathology on cxr. no concern for PE. pain reproducible on palpation and movemnent. - Diagnoses Provider Diagnosis: Costochondritis Discharge - Sign-Out/Discharge Documenting (check all that apply): Patient Departure All imaging exams completed and their final reports reviewed: No - Discharge Plan Condition: Stable Disposition: HOME Prescriptions: Naproxen [Naprosyn 500 mg tab] 500 mg PO BID 5 Days #10 tablet Patient Education Materials: Costochondritis (ED) Referrals: [facility] [Provider Group] - 5 Days - Billing Disposition and Condition Condition: STABLE Disposition: Home
[2019-03-20] MEDS ORDERED: Ibuprofen ADULT LIQ* 600 MG/30 ML UDC PO ONE (18:06)
--- NOTE | 2019-03-21 07:46 | UC ---
- Progress Note Progress Note: CXR: Findings consistent with COPD. No acute pathology. No change in management from initial visit. Course/Dx - Diagnoses Provider Diagnoses: Costochondritis Discharge - Sign-Out/Discharge Documenting (check all that apply): Post-Discharge Follow Up All imaging exams completed and their final reports reviewed: Yes - Discharge Plan Condition: Stable Disposition: HOME Prescriptions: Naproxen [Naprosyn 500 mg tab] 500 mg PO BID 5 Days #10 tablet Patient Education Materials: Costochondritis (ED) Referrals: [facility] [Provider Group] - 5 Days - Billing Disposition and Condition Condition: STABLE Disposition: Home
== END 2019-03-20 18:33 | disposition home or self-care (01) ==
LOC: UCCORT 17:02
DX: M94.0 Chondrocostal junction syndrome [Tietze] (principal); Z88.1 Allergy status to other antibiotic agents; F17.210 Nicotine dependence, cigarettes, uncomplicated
CPT/HCPCS: 71046; 99212; A9270-GY; G0463

== ENCOUNTER 2019-08-03 16:26 | Emergency (ER) | payer SELFPAY ==
--- NOTE | 2019-08-03 17:28 | ED ---
Back Pain - HPI Summary HPI Summary: 24 year old M presenting to [facility] complains of mid lower back pain since 03:00 today. Patient states his lower back felt tight after working out yesterday but wasn't concerned because his back often feels like that after working out. The patient rates the pain 7/10 in severity. Symptoms aggravated by movement. Symptoms alleviated by Tylenol and ibuprofen, last taken 16:00 today. Patient reports diarrhea for a couple days. Patient denies shortness of breath and dysuria. Patient states he has hx kidney stones. - History of Current Complaint Chief Complaint: EDBackInjuryPain Stated Complaint: LOWER BACK PAIN PER PT Time Seen by Provider: 08/03/19 17:21 Hx Obtained From: Patient Onset/Duration: Lasting Hours - 14, Still Present Timing: Constant Back Pain Location: Is Discrete @ - mid lower back Severity Currently: Moderate Pain Intensity: 7 Pain Scale Used: 0-10 Numeric Aggravating Symptom(s): Movement Alleviating Symptom(s): OTC Meds Associated Signs And Symptoms: Positive: Negative - shortness of breath and dysuria, Other - diarrhea for a couple days - Allergies/Home Medications Allergies/Adverse Reactions: Allergies Allergy/AdvReac Type Severity Reaction Status Date / Time cefaclor [From [facility]] Allergy Unknown Verified 08/03/19 17:12 Reaction Details Home Medications: Home Medications Acetaminophen TAB* [Tylenol TAB*] 650 mg PO Q6H PRN 08/03/19 [History Confirmed 08/03/19] Ibuprofen TAB* [Motrin TAB* 400 MG] 400 mg PO Q6H PRN 08/03/19 [History Confirmed 08/03/19] PMH/Surg Hx/FS Hx/Imm Hx Endocrine/Hematology History: Denies: Hx Diabetes Cardiovascular History: Denies: Hx Hypertension History: Reports: Hx Kidney Stones Denies: Hx Renal Disease Sensory History: Denies: Hx Legally Blind, Hx Deafness Opthamlomology History: Denies: Hx Legally Blind Neurological History: Reports: Hx Seizures - Surgical History Surgery Procedure, Year, and Place: tonsillectomy, wisdom teeth Infectious Disease History: No Infectious Disease History: Denies: Traveled Outside the [place] in Last 30 Days - Family History Known Family History: Positive: Other - Brother is allergic to cefaclor - Social History Alcohol Use: Occasionally Alcohol Amount: 2 Hx Substance Use: No Substance Use Type: Reports: None Hx Tobacco Use: Yes Smoking Status (MU): Heavy Every Day Tobacco Smoker Review of Systems Negative: Shortness Of Breath Positive: Diarrhea Negative: dysuria Positive: Other - mid lower back pain All Other Systems Reviewed And Are Negative: Yes Physical Exam - Summary Physical Exam Summary: Appearance: The patient is well-nourished in no acute distress and in no acute pain. Skin: The skin is warm and dry, and skin color reflects adequate perfusion. HEENT: The head is normocephalic and atraumatic. The pupils are equal and reactive. The conjunctivae are clear and without drainage. Nares are patent and without drainage. Mouth reveals moist mucous membranes, and the throat is without erythema and exudate. The external ears are intact. The ear canals are patent and without drainage. The tympanic membranes are intact. Neck: The neck is supple with full range of motion and non-tender. There are no carotid bruits. There is no neck vein distension. Respiratory: Chest is non-tender. Lungs are clear to auscultation and breath sounds are symmetrical and equal. Cardiovascular: Heart is regular rate and rhythm. There is no murmur or rub auscultated. There is no peripheral edema and pulses are symmetrical and equal. Abdomen: The abdomen is soft and non-tender. There are normal bowel sounds heard in all four quadrants and there is no organomegaly palpated. Musculoskeletal: There is tenderness in the midline of lumbar spine. Extremities are non-tender with full range of motion. There is good capillary refill. There is no peripheral edema or calf tenderness elicited. Neurological: Patient is alert and oriented to person, place and time. The patient has symmetrical motor strength in all four extremities. Cranial nerves are grossly intact. Deep tendon reflexes are symmetrical and equal in all four extremities. Psychiatric: The patient has an appropriate affect and does not exhibit any anxiety or depression. Triage Information Reviewed: Yes Vital Signs On Initial Exam: Initial Vitals Temp Pulse Resp BP Pulse Ox 98.1 F 90 18 172/98 100 08/03/19 16:27 08/03/19 16:27 08/03/19 16:27 08/03/19 16:27 08/03/19 16:27 Vital Signs Reviewed: Yes Diagnostics - Vital Signs Vital Signs Temp Pulse Resp BP Pulse Ox 08/03/19 16:27 98.1 F 90 18 172/98 100 - Laboratory Lab Statement: Any lab studies that have been ordered have been reviewed, and results considered in the medical decision making process. Re-Evaluation - Re-Evaluation First Eval Re-Evaluation Time: 18:40 Change: Improved Comment: patient feels better after medications. patient is agreeable to go home Back Pain Course/Dx - Course Course Of Treatment: Mr. Quiroz clinically presented as musculoskeletal low back pain. He was reluctant to move because it exacerbated the pain. He stated that he has had multiple kidney stones and that they don't feel anything like this. His back did feel tight after working out yesterday. He had tenderness in his lumbar spine and pain to any attempt to do straight leg raise. I gave him Ativan as a muscle relaxer and Percocet as a painkiller and he felt very significantly improved. He was able to ambulate about and demonstrated intact neurological function. I recommended a couple of days of these pain medications to reverse this spasm and inflammation. - Diagnoses Provider Diagnoses: Low back strain Discharge ED - Sign-Out/Discharge Documenting (check all that apply): Patient Departure - Discharge Patient Received Moderate/Deep Sedation with Procedure: No - Discharge Plan Condition: Stable Disposition: HOME Prescriptions: LORazepam TAB(*) [Ativan TAB(*)] 1 mg PO Q6H PRN #5 tab MDD 4 PRN Reason: Pain oxyCODONE/Acetamin 5/325 MG* [Percocet 5/325 TAB*] 1 tab PO Q6H PRN #10 tab MDD 4 PRN Reason: Pain Patient Education Materials: Low Back Strain (ED) Forms: *Work Release Referrals: [facility] [Outside] - 2 Days Additional Instructions: Follow up with your primary care provider in 2-3 days. RETURN TO EMERGENCY DEPARTMENT FOR NEW OR WORSENING SYMPTOMS. - Billing Disposition and Condition Condition: STABLE Disposition: Home - Attestation Statements Document Initiated by Montrellibe: Yes Documenting Scribe: Judy Jones Provider For Whom Vinay is Documenting (Include Credential): Luis M Aguilera MD Scribe Attestation: Judy Francis, scribed for Luis M Aguilera MD on 08/03/19 at 2125. Scribe Documentation Reviewed: Yes Provider Attestation: The documentation as recorded by the Judy reyes accurately reflects the service I personally performed and the decisions made by me, Luis M Aguilera MD Status of Scribe Document: Viewed
[2019-08-03] MEDS ORDERED: oxyCODONE/Acetamin 5/325 MG* TAB PO ONE (17:31)
[2019-08-03] MEDS ORDERED: LORazepam TAB(*) 1 MG PO ONE (17:31)
[2019-08-03 18:47] VITALS: BP 142/75
== END 2019-08-03 18:45 | disposition home or self-care (01) ==
LOC: ED 16:26
DX: S39.012A Strain of muscle, fascia and tendon of lower back, initial encounter (principal); X50.9XXA Other and unspecified overexertion or strenuous movements or postures, initial encounter; Y93.B9 Activity, other involving muscle strengthening exercises; Y92.9 Unspecified place or not applicable; F17.200 Nicotine dependence, unspecified, uncomplicated; Z88.1 Allergy status to other antibiotic agents
CPT/HCPCS: 99283; A9270-GY

== ENCOUNTER 2019-12-18 16:07 | Emergency (ER) | payer SELFPAY ==
[2019-12-18 16:20] VITALS: BP 141/90
--- NOTE | 2019-12-18 17:04 | UC ---
FLU HPI - HPI Summary HPI Summary: 24-year-old male presents with 2 day history of general malaise, fatigue, body aches, nasal congestion, mild sore throat, and a dry nonproductive cough. No measured fever. States he has had a couple episodes of loose stool. He did not receive his influenza vaccination this season. Denies ear pain, dysphagia, chest pain, shortness of breath, abdominal pain, nausea, or vomiting. - History of Current Complaint Chief Complaint: UCGeneralIllness Stated Complaint: COUGH, BODY ACHES, GI ISSUE Time Seen by Provider: 12/18/19 16:53 Hx Obtained From: Patient Pain Intensity: 6 - Allergy/Home Medications Allergies/Adverse Reactions: Allergies Allergy/AdvReac Type Severity Reaction Status Date / Time cefaclor [From [facility]] Allergy Unknown Verified 12/18/19 16:20 Reaction Details PMH/Surg Hx/FS Hx/Imm Hx Previously Healthy: Yes - Denies significant PMH - Surgical History Surgical History: Yes Surgery Procedure, Year, and Place: tonsillectomy, wisdom teeth - Family History Known Family History: Positive: Non-Contributory - Social History Occupation: Employed Full-time Lives: With Family Alcohol Use: Occasionally Alcohol Amount: 2 Substance Use Type: Marijuana Smoking Status (MU): Heavy Every Day Tobacco Smoker Household Exposure Type: Cigarettes Review of Systems All Other Systems Reviewed And Are Negative: Yes Constitutional: Positive: Fatigue. Negative: Fever, Chills Skin: Negative: Rash Eyes: Negative: Drainage, Eye Redness ENT: Positive: Sore Throat, Nasal Discharge, Sinus Congestion. Negative: Ear Ache, Sinus Pain/Tenderness Respiratory: Positive: Cough. Negative: Shortness Of Breath Cardiovascular: Negative: Palpitations, Chest Pain Gastrointestinal: Positive: Diarrhea. Negative: Abdominal Pain, Vomiting, Nausea Genitourinary: Positive: Negative Musculoskeletal: Positive: Myalgia Neurological: Positive: Negative Is Patient Immunocompromised?: No Physical Exam - Summary Physical Exam Summary: GENERAL APPEARANCE: Well developed, well nourished, alert and cooperative, and appears to be in no acute distress. EYES: Conjunctiva clear. No drainage. EARS: External auditory canals and tympanic membranes clear, hearing grossly intact. NOSE: Moderate nasal congestion. No nasal discharge. THROAT: Pharyngeal erythema. Surgically absent tonsils. Uvula midline. NECK: Neck supple, non-tender without lymphadenopathy. CARDIAC: Normal S1 and S2. No S3, S4 or murmurs. Rhythm is regular. There is no peripheral edema, cyanosis or pallor. Extremities are warm and well perfused. Capillary refill is less than 2 seconds. Peripheral pulses intact. LUNGS: Clear to auscultation without rales, rhonchi, wheezing or diminished breath sounds. Dry, non-productive cough. ABDOMEN: Positive bowel sounds. Soft, nondistended, nontender. No guarding or rebound. No masses or hepatosplenomegally. MUSKULOSKELETAL: ROM intact to all extremities. No joint erythema or tenderness. Normal muscular development. Normal gait. SKIN: Skin normal color, texture and turgor with no lesions or eruptions. Triage Information Reviewed: Yes Vital Signs: Initial Vital Signs Temp 100.0 F 12/18/19 16:16 Pulse 84 12/18/19 16:16 Resp 18 12/18/19 16:16 BP 141/90 12/18/19 16:16 Pulse Ox 100 12/18/19 16:16 Vital Signs Reviewed: Yes Flu Course/Dx - Course Course Of Treatment: 24-year-old male presents with 2 day history of general malaise, fatigue, body aches, nasal congestion, mild sore throat, and a dry nonproductive cough. No measured fever. States he has had a couple episodes of loose stool. He did not receive his influenza vaccination this season. Denies ear pain, dysphagia, chest pain, shortness of breath, abdominal pain, nausea, or vomiting. Patient has a mildly elevated temperature of 100.0 F. Hypertensive otherwise vital signs are stable. On exam patient had moderate nasal congestion, normal TMs, pharyngeal erythema with surgically absent tonsils, no cervical lymphadenopathy , clear bilateral breath sounds, a dry nonproductive cough with otherwise unremarkable exam. Rapid influenza was positive for influenza B. Reviewed results with the patient. We discussed the risks and benefits of starting him on Tamiflu and patient is declining at this time. I recommended symptomatic treatment including Tessalon Perles 1 capsule every 8 hours as needed for cough. He is to return here or follow up with primary care in 5-7 days if symptoms are not improving. Anticipatory guidance and warning symptoms were reviewed with the patient. Verbalizes understanding and agrees plan of care. - Differential Dx/Diagnosis Differential Diagnosis/HQI/PQRI: Bronchitis, Influenza, Pneumonia, Upper Respiratory Infection Provider Diagnosis: Influenza B Discharge ED - Sign-Out/Discharge Documenting (check all that apply): Patient Departure All imaging exams completed and their final reports reviewed: No Studies - Discharge Plan Condition: Stable Disposition: HOME Prescriptions: Benzonatate CAP* [Tessalon 100 MG CAP*] 100 mg PO TID PRN #21 cap PRN Reason: Cough Patient Education Materials: Influenza (ED) Forms: *Work Release Referrals: No Primary Care Phys,NOPCP [Primary Care Provider] - [facility] [place] [facility] [Outside] Additional Instructions: Your flu test in the clinic today was positive for influenza B. Get plenty of rest. Drink plenty of fluids to avoid dehydration especially if you are running any fever. Take over the counter acetaminophen (Tylenol) or ibuprofen (Advil, Motrin) according to directions as needed for pain or fever. Take Tessalon Perles 1 cap every 8 hours as needed for cough. Use salt water gargles several times a day if you have a sore throat. You may also use Chloraseptic spray or Cepacol lonzenges according to directions which contain a numbing medication and can provide some temporary relief from your sore throat. Return here of follow up with primary care in 7 days if symptoms persist. I have given you the contact information for the [facility] physician referral service if you need assistance with establishing with a provider. Seek immediate medical attention in the emergency room if you have fever greater than 100.5 F despite taking acetaminophen or ibuprofen, have chest pain , difficulty breathing, are unable to swallow, or have any worsening of symptoms. - Billing Disposition and Condition Condition: STABLE Disposition: Home
[2019-12-19 10:27] LABS: Influenza B Molecular POSITIVE (Negative)
== END 2019-12-18 17:31 | disposition home or self-care (01) ==
LOC: UCEAST 16:07
DX: J10.1 Influenza due to other identified influenza virus with other respiratory manifestations (principal); I10 Essential (primary) hypertension; F17.210 Nicotine dependence, cigarettes, uncomplicated; Z88.1 Allergy status to other antibiotic agents
CPT/HCPCS: 87651; 99211; G0463